=== PATIENT | male | born 1985 | race African-American/Black ===

== ENCOUNTER 2020-02-14 21:57 | Emergency (ER) | payer SELFPAY ==
[2020-02-14 22:04] VITALS: BP 139/87; PULSE 93; RESP 16; TEMP 36.7; O2SAT 100
--- NOTE | 2020-02-14 22:05 | ED.GENADUL_ITS ---
Discharge Plan Disposition Patient Disposition: HOME Condition: Stable Discharge Details Chief Complaint: Orthopedic Clinical Impression: Sprain of right shoulder Primary Care Provider: None,None ED Provider: Ty Butler Home Meds and New Rx's Prescriptions: No Action No Known Home Meds RF: 0 Discharge Instructions Instructions: Shoulder Sprain (ED) Additional Instructions: use the sling as needed for comfort, make sure you range your shoulder frequently during the day if still in pain in a week follow up with your primary care provider Medical Decision Making 34 yo male who denies chronic medical problems comes in with chief complaint of right shoulder pain. HE was playing softball and had just hit a ball and while running tripped and landed on his outstretched right arm. Denies head trauma or loc. ARrives with normal gait and no focal deficits complaining of right shoulder pain. He has no visible deformity to the shoulder and it appears symmetrical to the left. HAs full rom of the elbow wrist and hand with normal pulses and sensation. No head pain, neck pain and has full rom without midline tenderness. No chest pain abd pain or leg pain. Could be ac joint injury doubt shoulder fracture or dislocation based on exam will obtain xray xray negative, suspect sprain vs mild ac joint injury, will place in sling for comfort and advised f/u with pcp if not better in a week Differential Diagnosis Differential Diagnosis: sprain strain ac joint injury fx dislocation Imaging Data Radiologic Study: Attestation: I personally reviewed and interpreted this imaging study as follows: Imaging: X-Ray Radiologist's impression: no acute findings HPI General Mode of arrival: ambulatory . Date/Time Provider Initiated Documentation: 02/14/20 21:59 . Limitations to Documentation: no limitations . Information obtained by: patient . History of Present Illness 34 year old M presents to the emergency department with the chief complaint of right shoulder pain, described as moderate, No relieving factors improve symptom(s), No exacerbating factors reported . Patient did receive the following treatments prior to arrival, none Related Data Home Medications Medication Instructions Recorded Confirmed Unknown [No Known Home Meds] 02/14/20 02/14/20 Allergies Allergy/AdvReac Type Severity Reaction Status Date / Time No Known Allergies Allergy Unverified 02/14/20 22:04 Review of Systems All systems reviewed & are unremarkable except as noted in HPI and below Constitutional Constitutional: Denies chills, Denies fever(s) and Denies weakness Cardiovascular Cardiovascular: Denies chest pain and Denies dyspnea Respiratory Respiratory: Denies cough and Denies dyspnea Gastrointestinal Gastrointestinal: Denies abdominal pain, Denies nausea and Denies vomiting Musculoskeletal Musculoskeletal: Denies joint swelling Neurologic Neurologic: Denies weakness Psychiatric Psychiatric: Denies depression PFSH Social History Smoking/Tobacco Use Status: Current-Occasional Alcohol Intake: current Alcohol Intake frequency: a few times a week Drug use: Occasionally Substance use type: marijuana Do you feel safe at home: Yes Do you feel safe in your relationship?: Yes Exam Const General: no acute distress Orientation: alert HENMT Head: normal to inspection Ears: external ears normal General nose exam: external nose normal Mouth: moist mucous membranes Eyes General: appearance normal, both eyes and all related structures Neck Neck: normal visual inspection Resp Effort & Inspection: normal respiratory effort and able to speak in complete sentences Cardio Rate: regular rate Skin General skin exam: no rashes or lesions noted Neuro General: patient alert and patient oriented x3 Extrem General: capillary refill normal Psych Mental Status: mental status grossly normal
[2020-02-14] MEDS: Ibuprofen 600 MG TAB PO (22:11)
--- NOTE | 2020-02-14 22:30 | DI.RAD_ITS ---
EXAM: XR SHOULDER RT COMPLETE 2+V CLINICAL HISTORY: pain s/p fall. TECHNIQUE: 2D digital imaging was performed. COMPARISON: No exams were available for comparison FINDINGS: BONES: No acute fracture is present. No bony destructive lesion is seen. JOINTS: No dislocation present. SOFT TISSUE: Normal. IMPRESSION: Unremarkable radiographs of the right shoulder. DATA REPOSITORY: RADIATION DOSE DELIVERED:
--- NOTE | 2020-02-14 22:34 | DI.VRAD_ITS ---
PROCEDURE INFORMATION: Exam: XR Right Shoulder Exam date and time: 02/14/2020 10:21 PM Age: 34 years old Clinical indication: Injury or trauma; Fall; Initial encounter; Blunt trauma (contusions or hematomas; Shoulder; Injury date: 02/14/20; Injury details: Softball accident, feet were taken out from under him by another player, landed on right shouder TECHNIQUE: Imaging protocol: XR Right shoulder. Views: 2 or more views. COMPARISON: No relevant prior studies available. FINDINGS: Bones/joints: Normal. Soft tissues: Normal. IMPRESSION: No acute findings. Dictated and Authenticated by: Ty Keyes MD. Ordering:PITER Crawford MD
== END 2020-02-14 22:51 | disposition home or self-care (01) ==
PROVIDERS: Emergency Provider Emergency Medicine
DX: S43.401A Unspecified sprain of right shoulder joint, initial encounter (principal); W01.0XXA Fall on same level from slipping, tripping and stumbling without subsequent striking against object, initial encounter; Y93.64 Activity, baseball
CPT/HCPCS: 99284; 73030; 99283; L3650

== ENCOUNTER 2021-07-27 18:33 | Outpatient (REF) | payer MEDICAID, SELFPAY ==
[2021-07-27 20:57] LABS: Calculated LDL 60 mg/dL (<100); Cholesterol 159 mg/dL (<200); HDL Cholesterol 37 mg/dL (40-60); Triglyceride 311 mg/dL (<150)
[2021-07-29 10:12] LABS: HIV-1/2 Ag & Ab Screen Negative (Negative)
[2021-07-29 10:22] LABS: Hepatitis C Ab w Rflx HCV PCR Negative (Negative)
== END 2021-07-27 18:34 | disposition home or self-care (01) ==
LOC: NCHCN 18:33
PROVIDERS: Visit Provider Family Medicine
DX: Z00.00 Encounter for general adult medical examination without abnormal findings (principal); Z13.220 Encounter for screening for lipoid disorders; Z11.4 Encounter for screening for human immunodeficiency virus [HIV]; Z11.59 Encounter for screening for other viral diseases; M25.511 Pain in right shoulder; M25.512 Pain in left shoulder
CPT/HCPCS: 80061; 86803; 87389

== ENCOUNTER 2021-07-30 00:49 | Outpatient (CLI) | payer MEDICAID, SELFPAY ==
--- NOTE | 2021-07-30 | DI.RAD_ITS ---
Exam(s) XR SHOULDER RT COMPLETE 2+V EXAM: XR SHOULDER RT COMPLETE 2+V CLINICAL HISTORY: RT SHOULDER JOINT PAIN,M25.511. TECHNIQUE: 2D digital imaging was performed of the right shoulder. Five images were obtained. AP, Grashey, Y-view and axillary views were obtained. COMPARISON: CR,XR XR SHOULDER RT COMPLETE 2+V from 02/14/2020 FINDINGS: BONES: No acute fracture. Bony productive changes are seen at the distal right clavicle. The findin gs may represent a healing fracture, arthrosis or postsurgical change. No lytic or sclerotic lesions are seen. No bony destructive lesion is seen. JOINTS: No dislocation present. SOFT TISSUE: Normal. IMPRESSION: New bony productive changes seen at the distal clavicle. The findings may represent healed fracture, arthrosis or postsurgical change. Please correlate clinically. No lytic or sclerotic lesions are s een. DATA REPOSITORY: RADIATION DOSE DELIVERED:
--- NOTE | 2021-07-30 | DI.RAD_ITS ---
Exam(s) XR SHOULDER LT COMPLETE 2+V EXAM: XR SHOULDER LT COMPLETE 2+V CLINICAL HISTORY: LT SHOULDER JOINT PAIN,M25.512. TECHNIQUE: 2D digital imaging was performed of the left shoulder. Five images were obtained. AP, G rashey, Y-view and axillary views were obtained. COMPARISON: No exams were available for comparison FINDINGS: BONES: No acute fracture is present. No bony destructive lesion is seen. JOINTS: No dislocation present. Mild degenerative changes are seen at the acromioclavicular joint. T he glenohumeral joint is well maintained. SOFT TISSUE: Normal. IMPRESSION: Mild degenerative changes of the AC joint. DATA REPOSITORY: RADIATION DOSE DELIVERED:
== END 2021-07-30 01:09 ==
PROVIDERS: Visit Provider Family Medicine
DX: M25.512 Pain in left shoulder (principal); M25.511 Pain in right shoulder; M19.012 Primary osteoarthritis, left shoulder; M85.811 Other specified disorders of bone density and structure, right shoulder
CPT/HCPCS: 73030